=== PATIENT | female | born 1980 | race African-American/Black ===

== ENCOUNTER 2021-09-07 20:47 | Emergency (ER) | payer OTHER ==
[2021-09-07 20:55] VITALS: BP 108/67; PULSE 74; TEMP 98.3; BMI 33.3
[2021-09-07] MEDS ORDERED: IBUPROFEN 600 MG TABLET (FP) PO ONE ×2 (21:45→21:54)
[2021-09-09 19:07] LABS: SARS-CoV-2 NAA Not Detected (Not Detected)
== END 2021-09-07 22:08 | disposition home or self-care (01) ==
LOC: JCOVINFU 20:47 → JER 20:47 → JCOVINFU 22:08
DX: J02.9 Acute pharyngitis, unspecified (principal); R05.1 Acute cough; M79.10 Myalgia, unspecified site
CPT/HCPCS: 87804; 99283-25; C9803-CS; U0003; U0005

== ENCOUNTER 2022-02-24 12:35 | Emergency (ER) | payer OTHER ==
[2022-02-24 12:46] VITALS: BMI 31.1
[2022-02-24] MEDS ORDERED: morphine CARPU-JECT 2 MG/1 ML DISP.SYRIN IVPUSH ONE ×2 (13:36→13:46)
[2022-02-24] MEDS ORDERED: HYDROmorphone HCL CARPU-JECT 2 MG/1 ML DISP.SYRIN IVPUSH ONE (14:18)
[2022-02-24 14:19] LABS: BASO % 0.3 % (0-2.0); EOS % 1.6 % (0-4.5); HEMATOCRIT 39.9 % (32.4-45.2); HEMOGLOBIN 12.6 GM/dL (10.7-15.3); LYMPH % 17.5 % (8-40); MCH 23.2 pg (25.7-33.7); MCHC 31.6 g/dl (32.0-36.0); MEAN CELL VOLUME 73.3 fl (80-96); MEAN PLT VOLUME 8.7 fl (7.5-11.1); MONO % 6.3 % (3.8-10.2); NEUT % 74.3 % (42.8-82.8); PLATELET COUNT 224 10^3/uL (134-434); RBC 5.43 M/mm3 (3.60-5.2); RDW 15.4 % (11.6-15.6); WHITE BLOOD COUNT 7.1 K/mm3 (4.0-10.0)
[2022-02-24] MEDS ORDERED: HYDROmorphone HCl 2 MG/ML VIAL ONE (14:20)
[2022-02-24 14:29] LABS: ACTIVATED PTT 35.1 SECONDS (25.2-36.5); INR 1.06 (0.83-1.09); PROTHROMBIN TIME (PATIENT) 12.2 SEC (9.7-13.0)
[2022-02-24 14:31] LABS: ALBUMIN 3.4 g/dl (3.4-5.0); CALCIUM 9.2 mg/dL (8.5-10.1)
[2022-02-24 14:32] LABS: BLOOD UREA NITROGEN 6.4 mg/dL (7-18)
[2022-02-24 14:35] LABS: CREATININE 0.8 mg/dL (0.55-1.3)
[2022-02-24 14:37] LABS: BILIRUBIN,TOTAL 1.2 mg/dL (0.2-1); TOT PROT 6.6 g/dl (6.4-8.2)
[2022-02-24 16:37] VITALS: BP 122/75; PULSE 71; RESP 20; TEMP 98.3
== END 2022-02-24 16:38 | disposition home or self-care (01) ==
LOC: JER 12:35
PROC: 2W3DX1Z Immobilization of Left Lower Arm using Splint (ICD-10-PCS; principal; 2022-02-24)
PROC: 3E033NZ Introduction of Analgesics, Hypnotics, Sedatives into Peripheral Vein, Percutaneous Approach (ICD-10-PCS; 2022-02-24)
PROC: 3E033NZ Introduction of Analgesics, Hypnotics, Sedatives into Peripheral Vein, Percutaneous Approach (ICD-10-PCS; 2022-02-24)
PROC: 3E033NZ Introduction of Analgesics, Hypnotics, Sedatives into Peripheral Vein, Percutaneous Approach (ICD-10-PCS; 2022-02-24)
DX: M79.A12 Nontraumatic compartment syndrome of left upper extremity (principal)
CPT/HCPCS: 0241U-QW; 36415; 71046-TC-FY; 73110-TC-LT-FY; 80053; 82550; 82553; 84484; 84703; 85025; 85610; 85730; 86850; 86900; 86901; 93005; 93010; 99285-25

== ENCOUNTER 2022-10-30 23:12 | Inpatient (IN) | payer OTHER ==
[2022-10-30 23:52] VITALS: BMI 34.2
[2022-10-31] MEDS ORDERED: guaiFENesin 600 MG TABLET.ER (FP) PO PRN (02:49)
[2022-10-31] MEDS ORDERED: LOPERAMIDE HCL 2 MG CAPSULE PO PRN (02:49)
[2022-10-31] MEDS ORDERED: POLYETHYLENE GLYCOL (HEALTHYLAX) 3350 17 GM PACKET PO PRN (02:49)
[2022-10-31] MEDS ORDERED: IBUPROFEN 400 MG TABLET (FP) PO PRN (02:49)
[2022-10-31] MEDS ORDERED: ONDANSETRON *ODT* 4 MG TABLET SL PRN (02:49)
[2022-10-31] MEDS ORDERED: BISMUTH SUBSALICYLATE 524 MG/30 ML PO PRN (02:49)
[2022-10-31] MEDS ORDERED: NICOTINE 10 MG CARTRIDGE (INHALER) IH PRN (02:49)
[2022-10-31] MEDS ORDERED: NALOXONE HCL 0.4 MG/ML VIAL IM PRN (02:49)
[2022-10-31] MEDS ORDERED: DICYCLOMINE HCL 10 MG CAPSULE PO PRN (02:49)
[2022-10-31] MEDS ORDERED: MAG HYDROX/AL HYDROX/SIMETH 30 ML UNIT-DOSE CUP PO PRN (02:49)
[2022-10-31] MEDS ORDERED: NALOXONE HCL (KLOXXADO) 8 MG SPRAY NS PRN (02:49)
[2022-10-31] MEDS ORDERED: BENZONATATE 200 MG CAPSULE PO PRN (02:49)
[2022-10-31] MEDS ORDERED: ACETAMINOPHEN 325 MG TABLET (FP) PO PRN (02:49)
[2022-10-31] MEDS ORDERED: METHOCARBAMOL 500 MG TABLET PO PRN (02:49)
[2022-10-31] MEDS ORDERED: BENZOCAINE/MENTHOL (CHLORASEPTIC ) LOZENGE MM PRN (02:49)
[2022-10-31] MEDS ORDERED: IBUPROFEN 600 MG TABLET (FP) PO PRN (02:49)
[2022-10-31] MEDS ORDERED: MAGNESIUM HYDROX 2400MG/30ML ORAL SUSPENSION 30 ML CUP PO PRN (02:49)
[2022-10-31] MEDS ORDERED: chlordiazePOXIDE HCL 25 MG CAPSULE PO PRN (02:49)
[2022-10-31] MEDS: chlordiazePOXIDE HCL 25 MG CAPSULE PO SCH ×4 (05:45→22:27)
[2022-10-31] MEDS: PRENATAL VITAMINS W/ FOLIC ACID TABLET (FP) PO SCH (10:47)
[2022-10-31] MEDS: NICOTINE 14 MG/24 HOURS TOPICAL PATCH TD SCH (10:50)
[2022-10-31] MEDS ORDERED: MELATONIN 5 MG TABLETS PO SCH (22:00)
[2022-10-31] MEDS: THIAMINE HCL 100 MG TABLET (FP) PO SCH (22:26)
[2022-10-31] MEDS: SUVOREXANT 10 MG TABLET PO PRN (22:27)
[2022-11-01] MEDS ORDERED: chlordiazePOXIDE HCL 25 MG CAPSULE PO SCH (05:00)
[2022-11-01] MEDS: NICOTINE 14 MG/24 HOURS TOPICAL PATCH TD SCH (10:35)
[2022-11-01] MEDS: PRENATAL VITAMINS W/ FOLIC ACID TABLET (FP) PO SCH (10:35)
[2022-11-01] MEDS: chlordiazePOXIDE HCL 25 MG CAPSULE PO SCH ×3 (10:35→22:14)
[2022-11-01 11:55] LABS: HEMATOCRIT 39.3 % (32.4-45.2); HEMOGLOBIN 12.9 GM/dL (10.7-15.3); MCH 23.9 pg (25.7-33.7); MCHC 32.8 g/dl (32.0-36.0); MEAN CELL VOLUME 72.8 fl (80-96); MEAN PLT VOLUME 8.7 fl (7.5-11.1); PLATELET COUNT 259 10^3/uL (134-434); RDW 14.7 % (11.6-15.6); WHITE BLOOD COUNT 5.7 K/mm3 (4.0-10.0)
[2022-11-01 12:04] LABS: POTASSIUM 3.7 mmol/L (3.5-5.1)
[2022-11-01 12:11] LABS: ALBUMIN 3.2 g/dl (3.4-5.0)
[2022-11-01 12:13] LABS: BLOOD UREA NITROGEN 10.5 mg/dL (7-18)
[2022-11-01 12:15] LABS: BILIRUBIN,TOTAL 0.8 mg/dL (0.2-1); CREATININE 1.1 mg/dL (0.55-1.3); TOT PROT 5.8 g/dl (6.4-8.2)
[2022-11-01 13:11] LABS: HIV INTERPRETATION NEGATIVE (NEGATIVE)
[2022-11-01] MEDS: SUVOREXANT 10 MG TABLET PO PRN (22:14)
[2022-11-01] MEDS: THIAMINE HCL 100 MG TABLET (FP) PO SCH (22:14)
[2022-11-02] MEDS ORDERED: chlordiazePOXIDE HCL 10 MG CAPSULE PO PRN
[2022-11-02] MEDS: chlordiazePOXIDE HCL 10 MG CAPSULE PO SCH ×4 (05:55→22:10)
[2022-11-02] MEDS: PRENATAL VITAMINS W/ FOLIC ACID TABLET (FP) PO SCH (10:40)
[2022-11-02] MEDS: NICOTINE 14 MG/24 HOURS TOPICAL PATCH TD SCH (10:40)
[2022-11-02] MEDS: SUVOREXANT 10 MG TABLET PO PRN (22:09)
[2022-11-02] MEDS: THIAMINE HCL 100 MG TABLET (FP) PO SCH (22:10)
[2022-11-03] MEDS: chlordiazePOXIDE HCL 10 MG CAPSULE PO SCH ×2 (06:05→17:22)
[2022-11-03] MEDS: PRENATAL VITAMINS W/ FOLIC ACID TABLET (FP) PO SCH (10:56)
[2022-11-03] MEDS: NICOTINE 14 MG/24 HOURS TOPICAL PATCH TD SCH (10:56)
[2022-11-03] MEDS: THIAMINE HCL 100 MG TABLET (FP) PO SCH (23:00)
[2022-11-04] MEDS ORDERED: chlordiazePOXIDE HCL 10 MG CAPSULE PO ONE (05:00)
[2022-11-04 06:39] VITALS: BP 122/68; PULSE 55; RESP 16; TEMP 97.6
[2022-11-04] MEDS: PRENATAL VITAMINS W/ FOLIC ACID TABLET (FP) PO SCH (09:37)
[2022-11-04] MEDS: NICOTINE 14 MG/24 HOURS TOPICAL PATCH TD SCH (09:37)
== END 2022-11-04 09:59 | disposition home or self-care (01) | DRG 774 ==
LOC: YASAS 23:12 → Y6N 10-31 03:24
PROVIDERS: ADMIT Allergy & Immunology; ATTEND Surgery
PROC: HZ2ZZZZ Detoxification Services for Substance Abuse Treatment (ICD-10-PCS; principal; 2022-10-31)
DX: F10.230 Alcohol dependence with withdrawal, uncomplicated (principal); F14.20 Cocaine dependence, uncomplicated; F12.20 Cannabis dependence, uncomplicated; F17.210 Nicotine dependence, cigarettes, uncomplicated; F25.0 Schizoaffective disorder, bipolar type; F19.282 Other psychoactive substance dependence with psychoactive substance-induced sleep disorder; R00.1 Bradycardia, unspecified; R94.31 Abnormal electrocardiogram [ECG] [EKG]; R76.11 Nonspecific reaction to tuberculin skin test without active tuberculosis; Z86.79 Personal history of other diseases of the circulatory system; Z62.810 Personal history of physical and sexual abuse in childhood; Z91.410 Personal history of adult physical and sexual abuse; Z28.310 Unvaccinated for COVID-19; Z28.9 Immunization not carried out for unspecified reason
CPT/HCPCS: 36415; 71046-TC-FY; 80053; 81025; 85027; 86780; 87389; 87635; 87811; 93005; 93010

== ENCOUNTER 2023-03-27 14:25 | Inpatient (IN) | payer OTHER ==
[2023-03-27 15:17] VITALS: BMI 29.2
[2023-03-27] MEDS ORDERED: BISMUTH SUBSALICYLATE 524 MG/30 ML PO PRN (17:20)
[2023-03-27] MEDS ORDERED: BENZONATATE 200 MG CAPSULE PO PRN (17:20)
[2023-03-27] MEDS ORDERED: MAG HYDROX/AL HYDROX/SIMETH 30 ML UNIT-DOSE CUP PO PRN (17:20)
[2023-03-27] MEDS ORDERED: hydrOXYzine PAMOATE 25 MG CAPSULE (FP) PO PRN (17:20)
[2023-03-27] MEDS ORDERED: NALOXONE HCL 0.4 MG/ML VIAL IM PRN (17:20)
[2023-03-27] MEDS ORDERED: ACETAMINOPHEN 325 MG TABLET (FP) PO PRN (17:20)
[2023-03-27] MEDS ORDERED: DICYCLOMINE HCL 10 MG CAPSULE PO PRN (17:20)
[2023-03-27] MEDS ORDERED: LOPERAMIDE HCL 2 MG CAPSULE PO PRN (17:20)
[2023-03-27] MEDS ORDERED: METHOCARBAMOL 500 MG TABLET PO PRN (17:20)
[2023-03-27] MEDS ORDERED: IBUPROFEN 400 MG TABLET (FP) PO PRN (17:20)
[2023-03-27] MEDS ORDERED: MAGNESIUM HYDROX 2400MG/30ML ORAL SUSPENSION 30 ML CUP PO PRN (17:20)
[2023-03-27] MEDS ORDERED: BENZOCAINE/MENTHOL (CHLORASEPTIC ) LOZENGE MM PRN (17:20)
[2023-03-27] MEDS ORDERED: NICOTINE POLACRILEX 2 MG GUM BUC PRN (17:20)
[2023-03-27] MEDS ORDERED: IBUPROFEN 600 MG TABLET (FP) PO PRN (17:20)
[2023-03-27] MEDS ORDERED: guaiFENesin 600 MG TABLET.ER (FP) PO PRN (17:20)
[2023-03-27] MEDS ORDERED: POLYETHYLENE GLYCOL (HEALTHYLAX) 3350 17 GM PACKET PO PRN (17:20)
[2023-03-27] MEDS ORDERED: NALOXONE HCL (KLOXXADO) 8 MG SPRAY NS PRN (17:20)
[2023-03-27] MEDS ORDERED: ONDANSETRON *ODT* 4 MG TABLET SL PRN (17:20)
[2023-03-27] MEDS ORDERED: MELATONIN 5 MG TABLETS PO SCH (22:00)
[2023-03-27] MEDS: THIAMINE HCL 100 MG TABLET (FP) PO SCH (22:58)
[2023-03-28] MEDS: PRENATAL VITAMINS W/ FOLIC ACID TABLET (FP) PO SCH (09:21)
[2023-03-28] MEDS ORDERED: GABAPENTIN 300 MG CAPSULE PO PRN (10:17)
[2023-03-28 10:34] LABS: HEMATOCRIT 45.5 % (32.4-45.2); HEMOGLOBIN 15.1 GM/dL (10.7-15.3); MCH 23.8 pg (25.7-33.7); MCHC 33.2 g/dl (32.0-36.0); MEAN CELL VOLUME 71.7 fl (80-96); MEAN PLT VOLUME 9.1 fl (7.5-11.1); PLATELET COUNT 274 10^3/uL (134-434); RBC 6.35 M/mm3 (3.60-5.2); RDW 15.2 % (11.6-15.6); WHITE BLOOD COUNT 6.9 K/mm3 (4.0-10.0)
[2023-03-28 10:41] LABS: CHLORIDE 110 mmol/L (98-107); SODIUM 142 mmol/L (136-145)
[2023-03-28 10:52] LABS: SGPT/ALT 13 U/L (13-61)
[2023-03-28 10:54] LABS: ALBUMIN 3.4 g/dl (3.4-5.0); ANION GAP 7 mmol/L (4-13); BILIRUBIN,TOTAL 1.3 mg/dL (0.2-1); BLOOD UREA NITROGEN 13.5 mg/dL (7-18); CALCIUM 9.4 mg/dL (8.5-10.1); CO2 26 mmol/L (21-32); GLUCOSE,RANDOM 84 mg/dL (74-106); TOT PROT 6.5 g/dl (6.4-8.2)
[2023-03-28 10:55] LABS: ALK PHOS 67 U/L (45-117)
[2023-03-28 10:57] LABS: CREATININE 0.9 mg/dL (0.55-1.3)
[2023-03-28 10:59] LABS: SGOT/AST 10 U/L (15-37)
[2023-03-28] MEDS: risperiDONE 2 MG TABLET PO SCH (22:23)
[2023-03-28] MEDS: THIAMINE HCL 100 MG TABLET (FP) PO SCH (22:23)
[2023-03-29] MEDS: PRENATAL VITAMINS W/ FOLIC ACID TABLET (FP) PO SCH (09:23)
[2023-03-29] MEDS: risperiDONE 2 MG TABLET PO SCH (09:23)
[2023-03-29 12:38] VITALS: BP 112/70; PULSE 90; RESP 20; TEMP 97.5
== END 2023-03-29 12:55 | disposition other institution (70) | DRG 774 ==
LOC: YASAS 14:25 → Y6N 18:21 → Y3N 19:38
PROVIDERS: ADMIT Allergy & Immunology; ATTEND Surgery
PROC: HZ2ZZZZ Detoxification Services for Substance Abuse Treatment (ICD-10-PCS; principal; 2023-03-27)
DX: F10.20 Alcohol dependence, uncomplicated (principal); F14.20 Cocaine dependence, uncomplicated; F16.20 Hallucinogen dependence, uncomplicated; F12.20 Cannabis dependence, uncomplicated; F17.210 Nicotine dependence, cigarettes, uncomplicated; I10 Essential (primary) hypertension; Z62.810 Personal history of physical and sexual abuse in childhood; Z91.410 Personal history of adult physical and sexual abuse; Z28.310 Unvaccinated for COVID-19; Z28.9 Immunization not carried out for unspecified reason
CPT/HCPCS: 36415; 80053; 80307; 81025; 85027; 86780; 87635; 87811

== ENCOUNTER 2023-09-17 06:29 | Inpatient (IN) | payer OTHER ==
[2023-09-17 07:36] VITALS: BMI 29.8
[2023-09-17] MEDS ORDERED: LORazepam 1 MG TABLET PO PRN (08:48)
[2023-09-17] MEDS ORDERED: IBUPROFEN 400 MG TABLET (FP) PO PRN (08:48)
[2023-09-17] MEDS ORDERED: LOPERAMIDE HCL 2 MG CAPSULE PO PRN (08:48)
[2023-09-17] MEDS ORDERED: guaiFENesin 600 MG TABLET.ER (FP) PO PRN (08:48)
[2023-09-17] MEDS ORDERED: NALOXONE HCL (KLOXXADO) 8 MG SPRAY NS PRN (08:48)
[2023-09-17] MEDS ORDERED: NALOXONE HCL 0.4 MG/ML VIAL IM PRN (08:48)
[2023-09-17] MEDS ORDERED: BENZONATATE 200 MG CAPSULE PO PRN (08:48)
[2023-09-17] MEDS ORDERED: IBUPROFEN 600 MG TABLET (FP) PO PRN (08:48)
[2023-09-17] MEDS ORDERED: BISMUTH SUBSALICYLATE 262 MG/15 ML BTL PO PRN (08:48)
[2023-09-17] MEDS ORDERED: ACETAMINOPHEN 325 MG TABLET (FP) PO PRN (08:48)
[2023-09-17] MEDS ORDERED: hydrOXYzine PAMOATE 25 MG CAPSULE (FP) PO PRN (08:48)
[2023-09-17] MEDS ORDERED: MAGNESIUM HYDROX 2400MG/30ML ORAL SUSPENSION 30 ML CUP PO PRN (08:48)
[2023-09-17] MEDS ORDERED: DICYCLOMINE HCL 10 MG CAPSULE PO PRN (08:48)
[2023-09-17] MEDS ORDERED: POLYETHYLENE GLYCOL (HEALTHYLAX) 3350 17 GM PACKET PO PRN (08:48)
[2023-09-17] MEDS ORDERED: MAG HYDROX/AL HYDROX/SIMETH 30 ML UNIT-DOSE CUP PO PRN (08:48)
[2023-09-17] MEDS ORDERED: BENZOCAINE/MENTHOL (CHLORASEPTIC ) LOZENGE MM PRN (08:48)
[2023-09-17] MEDS ORDERED: ONDANSETRON *ODT* 4 MG TABLET SL PRN (08:48)
[2023-09-17] MEDS: NICOTINE 21 MG/24 HOURS TOPICAL PATCH TD SCH (09:38)
[2023-09-17] MEDS: PRENATAL VITAMINS W/ FOLIC ACID TABLET (FP) PO SCH (09:38)
[2023-09-17] MEDS ORDERED: NICOTINE 21 MG/24 HOURS TOPICAL PATCH ONE (09:41)
[2023-09-17] MEDS ORDERED: LORazepam 2 MG TABLET ONE (09:41)
[2023-09-17] MEDS ORDERED: PRENATAL VITAMINS W/ FOLIC ACID TABLET (FP) PO ONE (09:42)
[2023-09-17] MEDS: LORazepam 2 MG TABLET PO SCH (10:01)
[2023-09-17] MEDS ORDERED: MELATONIN 5 MG TABLETS PO SCH (22:00)
[2023-09-17] MEDS: THIAMINE 100 MG TABLET PO SCH (22:31)
[2023-09-17] MEDS: traZODone HCL 100 MG TABLET (FP) PO SCH (22:31)
[2023-09-17] MEDS: risperiDONE 3 MG TABLET PO SCH (22:31)
[2023-09-18 11:50] LABS: HEMATOCRIT 42.6 % (32.4-45.2); HEMOGLOBIN 13.7 GM/dL (10.7-15.3); MCHC 32.2 g/dl (32.0-36.0); MEAN CELL VOLUME 74.6 fl (80-96); MEAN PLT VOLUME 9.7 fl (7.5-11.1); PLATELET COUNT 235 10^3/uL (134-434); RBC 5.71 M/mm3 (3.60-5.2); RDW 15.5 % (11.6-15.6); WHITE BLOOD COUNT 5.7 K/mm3 (4.0-10.0)
[2023-09-18 11:52] LABS: POTASSIUM 3.5 mmol/L (3.5-5.1)
[2023-09-18 11:57] LABS: CALCIUM 8.7 mg/dL (8.5-10.1)
[2023-09-18 11:58] LABS: ALBUMIN 3.4 g/dl (3.4-5.0); BLOOD UREA NITROGEN 9.5 mg/dL (7-18)
[2023-09-18 12:00] LABS: CREATININE 0.9 mg/dL (0.55-1.3)
[2023-09-18 12:02] LABS: BILIRUBIN,TOTAL 0.9 mg/dL (0.2-1); TOT PROT 6.2 g/dl (6.4-8.2)
[2023-09-18] MEDS: METHOCARBAMOL 500 MG TABLET PO PRN (22:44)
[2023-09-19] MEDS: LORazepam 1 MG TABLET PO SCH (05:59)
[2023-09-19] MEDS: LACTULOSE 20 GM/30 ML UDC (FOR ORAL USE ONLY) PO SCH (13:31)
[2023-09-20] MEDS ORDERED: LORazepam 0.5 MG TABLET PO PRN
[2023-09-20] MEDS: LORazepam 0.5 MG TABLET PO SCH (05:59)
[2023-09-20 20:55] VITALS: PULSE 60
[2023-09-21] MEDS: LORazepam 0.5 MG TABLET PO ONE (05:01)
[2023-09-21 07:31] VITALS: RESP 16
[2023-09-21 13:05] VITALS: BP 124/70; TEMP 97.8
== END 2023-09-21 15:36 | disposition home or self-care (01) | DRG 774 ==
LOC: YASAS 06:29 → Y6N 09:28
PROVIDERS: ADMIT Allergy & Immunology; ATTEND Surgery
PROC: HZ2ZZZZ Detoxification Services for Substance Abuse Treatment (ICD-10-PCS; principal; 2023-09-17)
DX: F10.230 Alcohol dependence with withdrawal, uncomplicated (principal); F14.20 Cocaine dependence, uncomplicated; F12.20 Cannabis dependence, uncomplicated; F17.210 Nicotine dependence, cigarettes, uncomplicated; F19.282 Other psychoactive substance dependence with psychoactive substance-induced sleep disorder; F25.1 Schizoaffective disorder, depressive type; F41.9 Anxiety disorder, unspecified; I10 Essential (primary) hypertension; M54.50 Low back pain, unspecified; G89.29 Other chronic pain; R79.89 Other specified abnormal findings of blood chemistry; Z62.810 Personal history of physical and sexual abuse in childhood; Z91.410 Personal history of adult physical and sexual abuse; Z28.310 Unvaccinated for COVID-19; Z28.9 Immunization not carried out for unspecified reason; Z86.11 Personal history of tuberculosis
CPT/HCPCS: 36415; 71046-TC-FY; 80053; 80305; 80307; 81025; 82140; 85027; 86780; 93005; 93010